=== PATIENT | male | born 1960 | race Caucasian/White ===

== ENCOUNTER 2016-11-24 19:43 | Emergency (ER) | payer OTHER ==
[~2016-11-24] VITALS: Ht 188 cm; Wt 120.2 kg
[~2016-11-24 19:43] MED LIST: ATORVASTATIN CA20 MG PO; CYCLOBENZAPRINE5 MG PO; GLYBURIDE AND M1 TA1 PO; HYDROCODONE1 TABLET PO; PIOGLITAZONE HY45 MG PO
[2016-11-24] MEDS ORDERED: ALLEGRA-D 24HOU1 T24 PO (19:59)
[2016-11-24] MEDS ORDERED: FLONASE 50 MCG16 GM (20:21)
[2016-11-24] MEDS ORDERED: ZITHROMAX Z PA250 MG PO (20:21)
--- NOTE | 2016-11-24 20:21 | Urgent Treatment Center Report ---
History of Present Issue Date/Time Seen by Provider 11/24/162016 Visit Reason Pt arrived:Walked Presenting Problem:SINUS PRESSURE AND DRAINAGE OFF AND ON SINCE LAST MONDAY. EARS ARE ALSO STOPPED UP. HAS BEEN TAKING SUDEPHED BUT IS NOT HELPING. DENIES FEVER Location if Accident: Onset of symptoms date/time:/ or onset unknown for:MEDICAL HX UNKNOWN Have you (or family members/close friends) recently traveled outside the [place]? N If Yes, where/when: Have you had exposure to infectious disease within the past month? TB? Other? Specify: Patient states that about a week ago he was having sinus pain and drainage State that he thought he had got better because for several days he felt better States that around Monday his sinus pain and pressure returned and his ears felt like they was stopped up State that he started taking Sudafed but it has not helped at all and now he is feeling even worse so he came in to get checked out ALLERGIES Coded Allergies: No Known Allergies (07/18/16) Home Medications Active Scripts HYDROCODONE 5MG/APAP 325MG (Hydrocodon-Acetaminophen 5-325) 1 TABLET PO Q4HP PRN severe pain #12 TABLET Prov: 12/30/13 Cyclobenzaprine Hcl (Cyclobenzaprine HCl) 5 MG PO Q8HP PRN muscle pain #21 TAB Prov: 12/30/13 Reported Medications GLYBURIDE/METFORMIN HCL (Glyburide-Metformin 2.5-500 MG) 2 TABS PO BID #120 30 Days ATORVASTATIN CALCIUM (ATORVASTATIN 20MG) 20 MG PO QHS #30 30 Days FEXOFENADINE/PSEUDOEPHEDRINE (Sandi-D 24 Hour Tablet) 1 T24 PO DAILY PIOGLITAZONE HCL (Pioglitazone HCl) 45 MG PO QHS #30 History Medical History General Angina: No SD: No Hypertension? No Hyperlipidemia? Yes CHF? No COPD? No Asthma? No CVA? No Seizures? No Diabetes? Yes Insulin Dependent: No Insulin Pump: No Home FSBS? No GB Disease: No MRSA? No TB? No Cancer? No Immunization HX DT/Tetanus 11/15/2012 Surgical Hx Previous Surgery?N Social History Smoking Hx Smoker: Never Smoker Tobacco: No Alcohol Alcohol: No Review of Systems All Other Systems Reviewed and Negative ENT ear pain, nose congestion, throat pain. Respiratory cough Physical Exam Vital Signs Vital Signs Date Time Temp Pulse Resp B/P Pulse O2 O2 Flow FiO2 Ox Delivery Rate 11/25 1955 97.7 107 20 155/89 100 General Appearance normal appearance, WD/WN, no apparent distress Ear, Nose, Throat sinus pain/drainage, nasal congestion, Throat red, irritated drainage noted, tenderness maxillary sinsues, bilaterals ears no redness tm clear buldging Respiratory Status Yes: trachea midline, chest symmetrical, non tender chest. No: respiratory distress. Cardiovascular normal exam, regular rate/rhythm Neurologic alert, normal exam, oriented x 3 Medical Decision Making LABS/Meds/Orders Pt receiving controlled substance in ED? No Results/Orders Current Medication Orders Sig/Sarina Start time Last Medication Dose Route Stop Time Status Admin Dexamethasone Sodium 4 MG ONCE ONE 11/24 2029 AC 11/24 Phosphate IM 11/24 Progress [facility] Progress Notes Comment Patient given steriod injection advised to watch FSBS and it may be slightly elevated due to steriod Departure Departure Time of Disposition 2017 Disposition DC Home or Self Care(routine) Clinical Impression Primary Impression: Sinusitis Qualifiers: Sinusitis location: maxillary Chronicity: unspecified Qualified Code: J32.0 - Chronic maxillary sinusitis Condition STABLE Referrals Angelo YOUNG, Halle Rivas MD,Dung Parra MD,A.C. (Family): 3 Days-Call Office Patient Instructions DI for Sinusitis, Sinus Headache, Sinusitis Additional Instructions Take medication as prescribed Take allergy medication as directed to help keep fluid out of ears, use flonase as directed to help open nasal passages, Over the counter Motrin and Tylenol as needed for fever or pain REturn if needed Follow up IMMEDIATELY for new or worsening of symptoms OR no noticeable improvement over the next 48-72 hours. 911 immediately for any life threatening symptoms such as chest pain or difficulty breathing Discharge Counseling Counseled pt/family regarding diagnosis, medications/RX, home care, follow up needs Prescriptions Current Visit Scripts Azithromycin (Zithromycin (Z-ALEX) 250MG Tab) 250 MG PO DAILY #6 TAB TAKE TWO (2) TABLETS ON DAY 1, THEN ONE (1) TABLET DAY #2 THRU #5 Fluticasone Propionate (Flonase 50 Mcg Nasal Hart) 2 SPRAY NA DAILY #1 BOT at 2024
[2016-11-24 20:25] VITALS: BP 155/89
--- OUTSIDE RECORDS SUMMARY | 2016-11-26 17:59 | External Medical Summary Rpt | CCD ---
Demographics Preferred Language [place]ese Marital Status Unknown Muslim Affiliation Unknown Race Unknown Ethnic Group Unknown Author SEBLE Timmons Address Unknown Phone Immunization No patient found.
--- OUTSIDE RECORDS SUMMARY | 2016-11-26 17:59 | External Medical Summary Rpt | CCD ---
Demographics Preferred Language Turkmen Marital Status Unknown Christianity Affiliation Unknown Race Unknown Ethnic Group Unknown Author SEBLE Timmons Address Unknown Phone Immunization No patient found.
--- OUTSIDE RECORDS SUMMARY | 2016-11-26 17:59 | External Medical Summary Rpt | CCD ---
Author Author [employer] Organization [employer] Address Unknown Phone Unavailable Purpose Continuity of Care Document - through 2016
--- OUTSIDE RECORDS SUMMARY | 2016-11-26 17:59 | External Medical Summary Rpt ---
Author Author STERLING Dwyer, [employer] Address Unknown Phone Unavailable Results Glucose [Mass/volume] in Capillary blood by Glucometer Observa Value Referen Units Interpr Notes Date tion ce etation Range Glucose 70 - 110 mg/dl Normal No Oscar 6 [Mass/vol informati 2017 8:16 ume] in on in AM Capillary source blood by data Glucomete r
--- OUTSIDE RECORDS SUMMARY | 2016-11-26 17:59 | External Medical Summary Rpt | CCD ---
Author Author , STERLING KATZ Address Unknown Phone [email or web address] Care Team Providers Care Order Expediter Name Role Phone JANIE WARD MD, Unavailable Unavailable JANIE WARD MD Purpose Continuity of Care Document - 11-15-2012 through 2016 Problems Code Diagnosis DOS Provider Status 883.0 883.0 OPEN 11-26-2012 Jaspal WOUND OF [facility] V58.32 V58.32 11-26-2012 Jaspal ENCOUNTER [facility] OF SUTURES 401.9 401.9 11-15-2012 Jaspal HYPERTENSIO [facility] E849.3 E849.3 ACC 11-15-2012 Jaspal ON INDUSTR [facility] E888.0 E888.0 FALL 11-15-2012 Jaspal STRIKING [facility] OBJECT E920.8 E920.8 11-15-2012 Jaspal ACC-CUTTING [facility] NEC V06.5 V06.5 11-15-2012 Jaspal TETANUS-DIP [facility] [TD][DT] S39.012A STRAIN OF MUSCLE, FASCIA AND TENDON OF LOWER BACK, INIT T14.8 OTHER INJURY OF UNSPECIFIED BODY REGION Allergies, Adverse Reactions, Alerts Type Allergy to substance Adverse Reaction to Substance Substance Reaction Severity NO KNOWN ALLERGIES Unknown Unknown Medications Na ND Rx Da Fi Fi Am Da Di Ph RX Ph St me C No te ll ll ou ys ag ar # ys at rm s nt no ma ic us Or Da si cy ia de te s n re d AD 49 10 0 No AC 28 -0 EL 10 3- Lo 40 20 ng TD 01 13 er AP 0 Ac ti AL ve TR 00 10 0 No IP 16 -0 LE 80 3- Lo 01 20 ng AN 20 13 er TI 9 BI Ac OT ti IC ve OI NT ME NT Vital Signs 11-26-2012 16:16 Name Value Interpretat Reference Comment ion Range Body 97.8 [degF] Temperature BP 89 mm[Hg] Diastolic BP Systolic 152 mm[Hg] Heart 102 /min Rate/Pulse O2% 96 % Respiratory 18 /min Rate 11-15-2012 13:27 Name Value Interpretat Reference Comment ion Range BP 76 mm[Hg] Diastolic BP Systolic 147 mm[Hg] Heart 103 /min Rate/Pulse O2% 95 % Respiratory 18 /min Rate 11-15-2012 13:25 Name Value Interpretat Reference Comment ion Range BP 76 mm[Hg] Diastolic BP Systolic 147 mm[Hg] Heart 103 /min Rate/Pulse O2% 95 % Respiratory 18 /min Rate Procedures Procedure DOS Code Location Performer Comment CLOSURE 86.59 JANIE HARRELL MD SUBCUTANE [facility] NEC Encounters Encounter Start End Date Code Location Performer Type Date Emergency TAJ WARD MD (ER) 3 16:14 3 16:18 [facility] Emergency TAJ WARD MD (ER) 3 12:54 3 13:47 [facility]
--- OUTSIDE RECORDS SUMMARY | 2016-11-26 17:59 | External Medical Summary Rpt | CCD ---
Author Author , STERLING KATZ Address Unknown Phone [email or web address] [email or web address] Care Bar Captain Name Role Phone JANIE WARD MD, Unavailable Unavailable JANIE WARD MD Purpose Continuity of Care Document - 11-15-2012 through 2016 Problems Code Diagnosis DOS Provider Status 883.0 883.0 OPEN 11-26-2012 Jaspal WOUND OF [facility] V58.32 V58.32 11-26-2012 Jaspal ENCOUNTER [facility] OF SUTURES 401.9 401.9 11-15-2012 Jaspal HYPERTENSIO [facility] E849.3 E849.3 ACC 11-15-2012 Jaspal ON INDUSTR [facility] E888.0 E888.0 FALL 11-15-2012 Jaspal STRIKING [facility] OBJECT E920.8 E920.8 11-15-2012 Jaspal ACC-CUTTING [facility] NEC V06.5 V06.5 11-15-2012 Jaspal TETANUS-DIP [facility] [TD][DT] S39.012A STRAIN OF MUSCLE, FASCIA AND [...] WARD MD (ER) 3 16:14 3 16:18 [facility] Emergency TAJ WARD MD (ER) 3 12:54 3 13:47 [facility]
== END 2016-11-24 20:33 | disposition home or self-care (01) ==
LOC: UTC 19:43
DX: J32.0 Chronic maxillary sinusitis (principal); E11.9 Type 2 diabetes mellitus without complications